=== PATIENT | female | born 1960 | race Hispanic/Latino ===

== ENCOUNTER 2021-05-01 02:34 | Emergency (ER) | payer SELFPAY ==
[~2021-05-01] VITALS: Ht 152.4 cm; Wt 88.5 kg
[2021-05-01 02:53] LABS: APPEARANCE,URINE Clear (CLEAR); BILIRUBIN,URINE Negative (NEGATIVE); COLOR,URINE Yellow (YELLOW); GLUCOSE, URINE (UA) Negative (NEGATIVE); KETONES,URINE Negative (NEGATIVE); LEUKOCYTE ESTERASE ,URINE Trace (NEGATIVE); NITRATE,URINE Negative (NEGATIVE); OCCULT BLOOD,URINE Large (NEGATIVE); PH,URINE 5.5 (5.0-8.0); PROTEIN,URINE Negative (NEGATIVE); UROBILINOGEN,URINE 0.2 mg/dL (0.2-1.0)
[2021-05-01 02:59] LABS: BACTERIA,URINE None Seen /HPF (None Seen); WBC,URINE 0-1 /HPF (0-1)
[2021-05-01 02:59] LABS: BASOPHILS % (AUTO) 0.3 % (0.0-5.0); EOSINOPHILS % (AUTO) 4.5 % (0.0-8.0); HEMATOCRIT 39.7 % (36-48); LYMPHOCYTES % (AUTO) 18.9 % (21.0-51.0); MEAN CORPUSCULAR HEMOGLOBIN 30.4 pg (27.0-33.0); MEAN CORPUSCULAR HGB CONC 32.5 g/dL (32.0-36.0); MEAN CORPUSCULAR VOLUME 93.6 fL (79-99); MONOCYTES % (AUTO) 4.5 % (3.0-13.0); NEUTROPHILS % (AUTO) 71.6 % (40.0-77.0); PLATELET COUNT (AUTO) 186 K/uL (130-400); RED BLOOD CELL COUNT(AUTO) 4.24 MIL/uL (4.00-5.50); RED CELL DISTRIBUTION WIDTH 11.9 % (11.0-15.5); WHITE BLOOD COUNT (AUTO) 9.6 K/uL (4.8-10.8)
[2021-05-01 03:09] LABS: CREATININE 0.8 mg/dL (0.5-1.5); POTASSIUM 3.8 mmol/L (3.5-5.1)
[2021-05-01 03:14] LABS: BILIRUBIN,TOTAL 0.8 mg/dL (0.2-1.0); TOTAL PROTEIN, SERUM 7.3 g/dL (6.0-8.3)
[2021-05-01] MEDS ORDERED: 0.9%NACL 1000ML 1,000 ML IV ONE (03:30)
[2021-05-01] MEDS ORDERED: KETOROLAC 30MG VIAL (30MG/ML) IV ONE (03:30)
[2021-05-01] MEDS ORDERED: METO-296 PO (04:49)
[2021-05-01] MEDS ORDERED: TAMS-1 PO (04:49)
[2021-05-01] MEDS ORDERED: DICY20TA2 PO (04:49)
[2021-05-01] MEDS ORDERED: MELO7.5T12 PO (04:49)
[2021-05-01] MEDS ORDERED: ACET1TAB25 PO (04:49)
[2021-05-01] MEDS ORDERED: ONDA4TAB10 PO (04:49)
[2021-05-01 05:05] VITALS: BP 157/80
== END 2021-05-01 05:07 | disposition home or self-care (01) ==
LOC: EDH 02:34
DX: N20.1 Calculus of ureter (principal); E86.9 Volume depletion, unspecified; Z79.899 Other long term (current) drug therapy
CPT/HCPCS: 36415; 74176; 80053; 81001; 83690; 85025; 96361; 96374; 99284; J1885; J7030

== ENCOUNTER 2021-10-13 16:07 | Emergency (ER) | payer OTHER ==
[~2021-10-13] VITALS: Ht 152.4 cm; Wt 86.2 kg
[~2021-10-13 16:07] MED LIST: ACET-2079 PO; DICY20TA2 PO; MELO7.5T12 PO; METO-296 PO; ONDA4TAB10 PO; TAMS-1 PO
[2021-10-13] MEDS ORDERED: HYDROCODONE/ACETAMINOPHEN 5/325 MG TAB PO ONE (17:00)
[2021-10-13] MEDS ORDERED: LIDOCAINE HCL 400MG/20ML VIAL ONE (18:05)
[2021-10-13] MEDS ORDERED: LIDOCAINE HCL 1% 20 ML VIAL INJ SCH (18:30)
[2021-10-13] MEDS ORDERED: NAPR-1180 PO (18:43)
[2021-10-13 19:04] VITALS: BP 135/74
== END 2021-10-13 19:09 | disposition home or self-care (01) ==
LOC: EDH 16:07
DX: S43.005A Unspecified dislocation of left shoulder joint, initial encounter (principal); Z79.899 Other long term (current) drug therapy; Z98.890 Other specified postprocedural states; X58.XXXA Exposure to other specified factors, initial encounter; Y93.89 Activity, other specified; Y92.89 Other specified places as the place of occurrence of the external cause; Y99.8 Other external cause status
CPT/HCPCS: 99284; 23650; 73030 ×2; 93005; J3490

== ENCOUNTER → 2023-01-21 | Outpatient (CLI) | payer OTHER ==
[~2023-01-21] MED LIST changes: +NAPR-1180 PO
== END | disposition home or self-care (01) ==
LOC: RAH 13:46
PROVIDERS: ATTEND Family Medicine
DX: Z12.31 Encounter for screening mammogram for malignant neoplasm of breast (principal)
CPT/HCPCS: 77067